=== PATIENT | male | born 1985 | race Caucasian/White ===

== ENCOUNTER 2021-02-16 10:12 | Emergency (ER) | payer MEDICAID ==
[~2021-02-16] VITALS: Ht 167.6 cm; Wt 67.0 kg
[2021-02-16 11:29] LABS: BASOPHILS % 1.2 % (0.0-2.0); EOSINOPHILS % 4.3 % (0.0-5.0); HEMATOCRIT. 55.4 % (42.0-52.0); HEMOGLOBIN. 18.4 g/dL (14.0-18.0); LYMPHOCYTES % 25.8 % (20.0-50.0); MEAN CORPUSCULAR HEMOGLOBIN 31.4 pg (28.0-32.0); MEAN CORPUSCULAR VOLUME 94.6 fL (80.0-94.0); MEAN PLATELET VOLUME 7.9 fl (7.4-10.4); MONOCYTES % 7.4 % (2.0-8.0); NEUTROPHILS % 61.3 % (40.0-76.0); PLATELET 239 x1000/uL (130-400); RED BLOOD CELL COUNT 5.85 mill/uL (4.7-6.1); RED CELL DISTRIBUTION WIDTH 13.6 % (11.6-14.6)
[2021-02-16 11:43] LABS: CHLORIDE 110 mEq/L (98-107)
[2021-02-16] MEDS ORDERED: EFEX1 MT (11:45)
[2021-02-16] MEDS ORDERED: VENL150C2 MT (11:45)
[2021-02-16 12:43] VITALS: BP 135/89
== END 2021-02-16 12:44 | disposition home or self-care (01) ==
LOC: ER 10:32
DX: R56.9 Unspecified convulsions (principal); Z91.040 Latex allergy status
CPT/HCPCS: 36415; 80053; 85025; 99283